=== PATIENT | female | born 2000 | race Caucasian/White ===

== ENCOUNTER 2022-10-31 13:49 | Emergency (ER) | payer BC, SELFPAY ==
[2022-10-31 14:05] VITALS: BP 103/64; PULSE 96; RESP 17; TEMP 36.8; O2SAT 100
--- NOTE | 2022-10-31 14:20 | ED.URI ---
HPI - URI/Sore Throat General Chief Complaint: Upper Respiratory Infection Stated Complaint: Sore Throat Time Seen by Provider: 10/31/22 14:24 Source: patient and RN notes reviewed Mode of arrival: ambulatory Limitations: no limitations History of Present Illness HPI Narrative: 21-year-old female presents with concern for sore throat that started on Sunday. She reports she feels like her throat is swollen, she also reports some nasal congestion. She denies fever, aches, chills, sweats, cough. She reports she feels like she has been having trouble breathing, she denies cough. She reports she was seen in the emergency room last night and was told her symptoms will resolve on their own MD elicited complaint: sore throat Related Data Home Medications Medication Instructions Recorded Confirmed cholecalciferol (vitamin D3) 25 25 mcg PO DAILY 10/31/22 10/31/22 mcg (1,000 unit) tablet (Vitamin D3) fluoxetine 10 mg capsule (Prozac) 10 mg PO DAILY 10/31/22 10/31/22 fluoxetine 40 mg capsule (Prozac) 40 mg PO DAILY 10/31/22 10/31/22 methylphenidate HCl 36 mg 36 mg PO QAM 10/31/22 10/31/22 tablet,extended release 24 hr montelukast 10 mg tablet 10 mg PO DAILY 10/31/22 10/31/22 (Singulair) trazodone 50 mg tablet 50 mg PO HS 10/31/22 10/31/22 Allergies Allergy/AdvReac Type Severity Reaction Status Date / Time No Known Allergies Allergy Verified 10/31/22 14:03 Review of Systems Review of Systems: CONSTITUTIONAL: Denies malaise, chills, sweats, or fever. EYES: Denies visual changes, redness, or discharge. ENT: Denies rhinorrhea, congestion, sinus pain, otalgia. Reports nasal congestion and sore throat. CARDIOVASCULAR: Denies chest pain, palpitations, or edema. RESPIRATORY: Reports cough. Denies dyspnea. GASTROINTESTINAL: Denies abdominal pain, nausea, vomiting, diarrhea SKIN: Denies rash or itching. MUSCULOSKELETAL: Denies myalgia. NEUROLOGIC: Denies headache. All systems reviewed & are unremarkable except as noted in HPI and below PMFSH Comments At time of signature, agree with nursing past medical, surgical, social and family history. There is no relevant family history pertinent to the presenting complaint Exam Narrative: GENERAL: Well-appearing, well-nourished, and in no acute distress. HEAD: Normocephalic EYES: PERRLA, conjunctivae clear ENT: Nares clear, turbinates edematous and erythematous, clear discharge. Mucous membranes moist. TM pearly franklin with dull light reflex bilaterally; no tragal tenderness. Oropharynx not erythematous without lesions. Tonsils not enlarged and without exudate, no drooling, no hoarseness, no trismus, uvula midline. NECK: Supple. No lymphadenopathy CHEST: Clear to auscultation, breath sounds equal. No wheezing, rhonchi, rales, or stridor. No respiratory distress, speaks in full sentences. HEART: Regular rate and rhythm. No murmur heard. SKIN: Warm, dry, no rash. NEURO: Alert and oriented x3. PSYCH: Normal mood and affect Course Course Emergency Course: Patient is very upset that her strep test is negative (she also had a negative strep test in the emergency room) She is concerned that she is going to stop breathing in the middle of the night. Patient's exam is completely normal, there is no erythema, edema noted, there is no stridor, her lung sounds are clear, her vital signs are normal. Patient was reassured, she was instructed if she feels any worsening of symptoms she should go to the emergency room. Patient is aware of diagnosis, understands and agrees to treatment plan. Anticipatory guidance given. Patient agrees to follow-up as directed and is aware of reasons to seek care at the emergency department. Portions of this record may have been created with voice recognition software Level of Care: Express Care Visit Vital Signs Vital signs: Vital Signs Temperature 98.2 F 10/31/22 14:05 Pulse Rate 96 10/31/22 14:05 Respiratory Rate 17 10/31/22 14:05 Blood
== END 2022-10-31 14:40 | disposition home or self-care (01) ==
PROVIDERS: Emergency Provider Nurse Practitioner
DX: J02.9 Acute pharyngitis, unspecified (principal)
CPT/HCPCS: 87081; 87880; 99213; G0463

== ENCOUNTER 2023-01-27 10:58 | Emergency (ER) | payer BC, SELFPAY ==
[2023-01-27 11:13] VITALS: BP 111/75; PULSE 86; RESP 16; TEMP 37.4; O2SAT 100
[2023-01-27 11:17] VITALS: BP 111/75; PULSE 86; RESP 16; TEMP 37.4; O2SAT 100
--- NOTE | 2023-01-27 11:20 | ED.HA ---
HPI - Headache General Chief Complaint: Headache Stated Complaint: Headache Source: patient and RN notes reviewed History of Present Illness HPI Narrative: 22 yo F presents to urgent care with complaints of an ongoing HERNÁNDEZ x 1 month. Pt reports intermittent blurry vision, last time being around 2 am this morning. Pt reports intermittent nausea but denies any vomiting. Pt states the HERNÁNDEZ does radiate sometimes behind her left eye. Denies any head trauma, falls, congestion, fevers, chills, neck pain, numbness, or tingling. Pt does admit to be anxious. Pt staets she had a migraine 1x in the past that lasted 15 days. Pt has tried taking ibuprofen, Excedrin, drinking lots of water, and sleeping all the time without relief. Pt denies any chance of , stating, I've never had sex. Last dose of ibuprofen was yesterday. Related Data Home Medications Medication Instructions Recorded Confirmed methylphenidate HCl 36 mg 36 mg PO QAM 10/31/22 01/27/23 tablet,extended release 24 hr trazodone 50 mg tablet 50 mg PO HS 10/31/22 01/27/23 Vitamin D3 50,000 units PO DAILY 01/27/23 01/27/23 lamotrigine 25 mg tablet 25 mg PO DIRECTED 01/27/23 01/27/23 montelukast 10 mg PO DAILY 01/27/23 01/27/23 Allergies Allergy/AdvReac Type Severity Reaction Status Date / Time No Known Allergies Allergy Verified 01/27/23 11:08 Review of Systems Review of Systems: CONSTITUTIONAL: Denies fever, chills, or sweats. EYES: Denies visual changes, redness, or discharge. ENT: Denies otalgia and sore throat CARDIOVASCULAR: Denies chest pain, palpitations, or edema. RESPIRATORY: Denies cough or dyspnea. GASTROINTESTINAL: Denies abdominal pain, nausea, vomiting, or diarrhea. GENITOURINARY: Denies dysuria or hematuria. SKIN: Denies rash or itching. MUSCULOSKELETAL: Denies back pain, joint pain, or myalgia. NEUROLOGIC: Headache Pertinent positives per HPI. PMFSH Comments At the time of my signature, I reviewed and agree with the nursing past medical, surgical, social, and family history. There is no relevant family history pertinent to the patient complaint. Exam Narrative: GENERAL: This is a well-nourished, well-developed patient, in no apparent distress. HEAD: normocephalic, atraumatic. EYES: Sclera clear/white. Vision is grossly intact. EARS: External ears normal, auditory canals clear and without drainage, TMs normal without perforation. Hearing grossly intact. NOSE: External nose normal with no obvious nasal discharge, nares without redness, no rhinorrhea. THROAT: Mucous membranes moist, posterior pharynx clear. NECK: Neck supple, non-tender without lymphadenopathy, masses or thyromegaly. CARDIOVASCULAR: Regular rate and rhythm without murmurs, gallops, or rubs. RESPIRATORY: Clear to auscultation. Breath sounds equal bilaterally. No wheezes, rales, or rhonchi. GASTROINTESTINAL: Abdomen soft, non-tender, nondistended. Bowel sounds are active. No hepato-splenomegaly, or palpable masses. No guarding. SKIN: warm, intact with no suspicious lesions or rash, good texture and turgor. NEURO: awake, alert, and oriented to person, place and time. There were no obvious focal neurologic abnormalities. EXTREMITIES: No clubbing, cyanosis, or edema. No joint tenderness, effusion, or edema noted. BACK: Nontender without deformity or crepitus. No flank tenderness. Course Course Level of Care: Express Care Visit Vital Signs Vital signs: Vital Signs Temperature 99.4 F 01/27/23 11:13 Pulse Rate 86 01/27/23 11:13 Respiratory Rate 01/27/23 11:13 Blood Pressure 111/75 01/27/23 11:13 Pulse Oximetry 100 01/27/23 11:13 Oxygen Delivery Room Air 01/27/23 11:13 Temperature 99.4 F 01/27/23 11:17 Pulse Rate 86 01/27/23 11:17 Respiratory Rate 16 01/27/23 11:17 Blood Pressure 111/75 01/27/23 11:17 Pulse Oximetry 100 01/27/23 11:17 Oxygen Delivery Room Air 01/27/23 11:17 reviewed MDM - Headache MDM N
== END 2023-01-27 11:35 | disposition short-term general hospital (02) ==
PROVIDERS: Emergency Provider Nurse Practitioner Family
DX: G43.901 Migraine, unspecified, not intractable, with status migrainosus (principal); J45.909 Unspecified asthma, uncomplicated; F90.9 Attention-deficit hyperactivity disorder, unspecified type; F32.A Depression, unspecified
CPT/HCPCS: 99212; G0463

== ENCOUNTER 2023-05-27 18:06 | Emergency (ER) | payer BC, SELFPAY ==
[2023-05-27 18:17] VITALS: BP 121/102; PULSE 92; RESP 16; TEMP 36.7; O2SAT 99
[2023-05-27 18:20] VITALS: BP 121/102; PULSE 92; RESP 16; TEMP 36.7; O2SAT 99
--- NOTE | 2023-05-27 18:34 | ED.FEMALEGU ---
HPI - Female Genitourinary General Chief complaint: Urogenital-Female Stated complaint: vaginal issue Time Seen by Provider: 05/27/23 18:28 Source: patient and RN notes reviewed Mode of arrival: ambulatory Limitations: no limitations History of Present Illness HPI Narrative: 22 y/o female presented for c/o recurrent yeast infection. Endorses burning and irritation to vaginal opening, and white discharge. States she had a uti along with a yeast infection in April, and states the abx for the uti worsened the yeast infection. States she has had a history of yeast infections, and often requires a 7 day treatment with fluconazole. Also states she has spent over $100 on otc yeast creams without improvement. Denies sexual activity. LMP 05/18. Denies itching, lesions, hematuria, nausea, vomiting, abdominal pain, flank pain, constipation, diarrhea, fevers or chills. Related Data Home Medications Medication Instructions Recorded Confirmed trazodone 50 mg tablet 50 mg PO HS 10/31/22 05/27/23 lamotrigine 25 mg tablet 25 mg PO DIRECTED 01/27/23 05/27/23 fluoxetine 20 mg capsule 20 mg PO DAILY 05/27/23 05/27/23 ibuprofen 600 mg tablet See Rx Instructions .Route .COMPLEX 05/27/23 05/27/23 loratadine 10 mg tablet 10 mg PO DAILY 05/27/23 05/27/23 methylphenidate HCl 36 mg 36 mg PO DAILY 05/27/23 05/27/23 tablet,extended release 24 hr (Concerta) montelukast 10 mg tablet 10 mg PO DAILY 05/27/23 05/27/23 propranolol 60 mg tablet 60 mg PO DAILY 05/27/23 05/27/23 Allergies Allergy/AdvReac Type Severity Reaction Status Date / Time No Known Allergies Allergy Verified 05/27/23 18:11 Review of Systems Review of Systems: CONSTITUTIONAL: Denies body aches, fever, chills, or sweats. CARDIOVASCULAR: Denies chest pain, palpitations, or edema. RESPIRATORY: Denies cough or dyspnea. GASTROINTESTINAL: Denies abdominal pain, nausea, vomiting, or diarrhea. GENITOURINARY: reports vaginal discharge and irritation. denies dysuria, frequency, urgency, hematuria, flank pain SKIN: Denies rash, itching, or wounds. MUSCULOSKELETAL: Denies back pain or myalgia. [facility] Past Medical History Medical History (Updated 05/27/23 @ 19:18 by Isi Reynolds APRN) ADHD Self-harming behaviour Comments At time of signature, I have reviewed and agree with nursing past medical, surgical, social and family history unless otherwise noted. Please see nursing chart for further information. There is no relevant family history pertinent to the presenting complaint Exam Narrative: GENERAL: Well-appearing and in no acute distress. ENT: Mucous membranes pink and moist. NECK: Normal AROM. Supple. CHEST: No respiratory distress. Clear to auscultation. HEART: Regular rate and rhythm. ABDOMEN: Soft, nontender, nondistended, normal active bowel sounds. No CVA tenderness : Speculum Exam deferred based on trauma history. external skin pink with white discharge. No bleeding, foreign body, laceration or lesions. No swelling. Nontender. Chaperoned by Kaela BELLO SKIN: Warm, dry, extensive linear scarring to bilateral upper and lower extremities various stages of healing c/w self harm. NEURO: No focal deficits. Alert and oriented x3. Gait steady. PSYCH: Anxious. Cooperative. Course Course Emergency Course: Patient is aware of diagnosis, understands and agrees to treatment plan. Anticipatory guidance given. Patient agrees to follow-up as directed and is aware of reasons to seek care at the emergency department. Portions of this record may have been created with voice recognition software Level of Care: Express Care Visit Vital Signs Vital signs: Vital Signs Temperature 98.0 F 05/27/23 18:17 Pulse Rate 92 05/27/23 18:17 Respiratory Rate 16 05/27/23 18:17 Blood Pressure 121/102 H 05/27/23 18:17 Pulse Oximetry 99 05/27/23 18:17 Oxygen Delivery Room Air 05/27/23 18:17 Temperature 98.0 F 05/27/23 18:20 Pulse Rate 92 01
[2023-05-30 08:21] LABS: Bacterial Vaginosis Negative (Negative)
== END 2023-05-27 19:28 | disposition home or self-care (01) ==
PROVIDERS: Emergency Provider Nurse Practitioner Family; PCP Nurse Practitioner Family
DX: N76.0 Acute vaginitis (principal); F90.9 Attention-deficit hyperactivity disorder, unspecified type
CPT/HCPCS: 81003; 81513; 87070; 99213; G0463

== ENCOUNTER 2023-07-04 10:03 | Emergency (ER) | payer BC, SELFPAY ==
[2023-07-04 10:16] VITALS: BP 109/65; PULSE 76; RESP 16; TEMP 36.7; O2SAT 98
--- NOTE | 2023-07-04 10:28 | ED.GENADULT ---
HPI - General Adult General Chief complaint: Urogenital-Female Stated complaint: UTI Source: patient, RN notes reviewed and old records reviewed Mode of arrival: ambulatory Limitations: no limitations History of Present Illness HPI narrative: 22-year-old female presents to [facility] with complaints of burning with urination. Patient was seen approximately 1 week ago in the ER and diagnosed with a UTI given cephalexin. Patient states symptoms have worsened and is now having constant urethral pain. Patient states taking azo with no relief. Patient unsure if ER sent urine culture but states has not received any calls. Related Data Home Medications Medication Instructions Recorded Confirmed trazodone 50 mg tablet 50 mg PO HS 10/31/22 05/27/23 lamotrigine 25 mg tablet 25 mg PO DIRECTED 01/27/23 05/27/23 fluoxetine 20 mg capsule 20 mg PO DAILY 05/27/23 05/27/23 loratadine 10 mg tablet 10 mg PO DAILY 05/27/23 05/27/23 methylphenidate HCl 36 mg 36 mg PO DAILY 05/27/23 05/27/23 tablet,extended release 24 hr (Concerta) montelukast 10 mg tablet 10 mg PO DAILY 05/27/23 05/27/23 propranolol 60 mg tablet 60 mg PO DAILY 05/27/23 05/27/23 cephalexin 500 mg capsule mg 07/04/23 phenazopyridine 200 mg tablet mg 07/04/23 Allergies Allergy/AdvReac Type Severity Reaction Status Date / Time No Known Allergies Allergy Verified 07/04/23 10:17 Review of Systems Constitutional: Constitutional: Reports no additional constitutional complaints, Denies body ache(s), Denies chills, Denies fatigue, Denies fever(s) and Denies headache(s) Eyes: Eyes: Reports no additional eye complaints and Denies blurry vision ENT: Reports system reviewed and no additional complaints, except as documented, Denies vertigo, Denies dizziness, Denies ear discharge, Denies otalgia, Denies facial pain, Denies headache(s), Denies nasal congestion, Denies nasal discharge, Denies sinus pain, Denies sinus pressure and Denies sore throat Cardiovascular: Cardiovascular: Reports no additional cardiovascular complaints, Denies chest pain, Denies chest pain at rest, Denies rapid heart rate and Denies dyspnea Respiratory: Respiratory: Reports no additional respiratory complaints, Denies chest congestion, Denies cough, Denies pain on inspiration, Denies pain with cough and Denies dyspnea Gastrointestinal: Gastrointestinal: Denies abdominal pain, Denies diarrhea, Denies nausea and Denies vomiting Genitourinary: Genitourinary: Reports as per HPI and Reports dysuria Integumentary/Breasts: Skin/Breast: Denies rash Neurologic: Reports system reviewed and no additional complaints, except as documented, Denies vertigo, Denies dizziness and Denies headache(s) Endocrine: Endocrine: Denies fatigue PMFSH Past Medical History Medical History ADHD Self-harming behaviour Comments At the time of my signature, I reviewed and agree with the nursing past medical, surgical, social, and family history. There is no relevant family history pertinent to the patient complaint. Exam Const: General: cooperative, healthy appearing, no acute distress and well nourished Nutritional Appearance: well nourished Orientation/consciousness: patient oriented x3 Limitations: no limitations HENMT: Head: normal to inspection and normocephalic Ears: external ears normal Face/Nose/Sinus: normal facial exam Face and sinus: normal facial exam Mouth: Yes moist mucous membranes Throat: uvular edema Eyes: General: appearance normal, both eyes and all related structures Sclera: sclerae normal Pupils: Equal, round and reactive pupils present Resp: Effort & Inspection: normal respiratory effort, able to speak in complete sentences, no audible wheezes, no cough, no respiratory distress and no retractions GI: GI Palp: No abdominal tenderness, Yes Soft to palpation, No Firmness to palpation present (GI), No Tenderness to palpation present (GI), No G
== END 2023-07-04 11:02 | disposition home or self-care (01) ==
PROVIDERS: Emergency Provider Registered Nurse; PCP Nurse Practitioner Family
DX: N30.90 Cystitis, unspecified without hematuria (principal); F90.9 Attention-deficit hyperactivity disorder, unspecified type
CPT/HCPCS: 81003; 87086; 99213; G0463

== ENCOUNTER 2025-04-29 11:32 | Emergency (ER) | payer BC, SELFPAY ==
--- NOTE | 2025-04-29 12:11 | ED.URI ---
HPI - URI/Sore Throat General Stated Complaint: flu symptoms Time Seen by Provider: 04/29/25 11:35 Source: patient Mode of arrival: ambulatory Limitations: no limitations Related Data Home Medications ?Medication ?Instructions ?Recorded ?Confirmed ?Last Taken ?Type trazodone 50 mg tablet 50 mg PO HS 10/31/22 05/27/23 Unknown History lamotrigine 25 mg tablet 25 mg PO DIRECTED 01/27/23 05/27/23 Unknown History fluoxetine 20 mg capsule 20 mg PO DAILY 05/27/23 05/27/23 Unknown History loratadine 10 mg tablet 10 mg PO DAILY 05/27/23 05/27/23 Unknown History methylphenidate HCl 36 mg 36 mg PO DAILY 05/27/23 05/27/23 Unknown History tablet,extended release 24 hr (Concerta) montelukast 10 mg tablet 10 mg PO DAILY 05/27/23 05/27/23 Unknown History propranolol 60 mg tablet 60 mg PO DAILY 05/27/23 05/27/23 Unknown History cephalexin 500 mg capsule mg 07/04/23 Unknown History phenazopyridine 200 mg tablet mg 07/04/23 Unknown History Allergies Allergy/AdvReac Type Severity Reaction Status Date / Time No Known Allergies Allergy Verified 07/04/23 10:17 Review of Systems Review of Systems: All systems reviewed & are unremarkable except as noted in HPI and below Constitutional: Constitutional: Denies chills, Denies fatigue, Denies fever(s), Denies headache(s), Denies malaise and Denies weakness Eyes: Eyes: Denies blurry vision, Denies itchy eyes and Denies loss of vision ENT: Denies otalgia, Denies headache(s), Reports nasal congestion, Denies sinus pain and Denies sore throat Cardiovascular: Cardiovascular: Denies chest pain, Denies irregular heart rhythm and Denies dyspnea Respiratory: Respiratory: Reports cough and Denies dyspnea Gastrointestinal: Gastrointestinal: Denies abdominal pain, Denies diarrhea, Denies nausea and Denies vomiting Musculoskeletal: Musculoskeletal: Denies back pain, Denies myalgias and Denies arthralgias Integumentary/Breasts: Skin/Breast: Denies pruritus and Denies rash Neurologic: Denies headache(s), Denies loss of vision and Denies weakness Psychiatric: Psychiatric: Reports no additional psychiatric complaints Endocrine: Endocrine: Denies fatigue Allergic/Immunologic: Allergic/Immunologic: Denies itchy eyes PMFSH Past Medical History Medical History ADHD Self-harming behaviour Comments At time of signature, agree with nursing past medical, surgical, social and family history. There is no relevant family history pertinent to the presenting complaint. Exam Const: General: cooperative, healthy appearing, comfortable, no acute distress and well nourished Nutritional Appearance: well nourished Orientation/consciousness: patient oriented x3 Limitations: no limitations HENMT: Head: normal to inspection, normocephalic and atraumatic Ears: hearing grossly normal bilaterally, external ears normal, TM's normal bilaterally, EAC's normal and no periauricular adenopathy Face/Nose/Sinus: Normal external nose present, Abnormal mucous membranes and turbinates present erythematous bilateral and diffuse, normal facial exam, sinuses nontender and face symmetric Face and sinus: normal facial exam, sinuses nontender and face symmetric Mouth: Yes Normal oral and palatal mucosa present, Yes lip normal, Yes tongue normal, Yes Normal salivary glands and ducts present, Yes oropharynx normal and Yes moist mucous membranes Teeth and gingiva: dentition normal Throat: posterior oropharynx normal, tonsils normal and uvula midline Eyes: General: appearance normal, both eyes and all related structures Alignment and Position: alignment normal and position normal Periorbital: periorbital findings normal Eyelids: eyelids normal Pupils: Equal, round and reactive pupils present Neck: Neck: normal visual inspection, full ROM, no lymphadenopathy and supple Chest: Chest palpation & inspection: normal inspection of the chest and normal palpation of entire chest wall Resp: Effort & Inspection: normal respiratory effort and able to speak in complete sentences Auscultation: clear to auscultation bilaterally, no crackles, no rales, no rhonchi and no wheezes Cardio: Rate: regular rate Rhythm: regular rhythm Heart sounds: S1 normal heart sound present and S2 normal heart sound present GI: Inspection: normal to inspection Skin: General skin exam: normal color and no rashes or lesions noted Neuro: General: patient oriented x3 and moves all extremities Cranial nerves: Yes Equal, round and reactive pupils present Speech: normal speech Gait exam (Neuro): Normal gait present Extrem: General: normal to inspection, full ROM and no edema Psych: Appearance: grossly normal and well kempt Mental Status: mental status grossly normal Speech and movement: Normal speech and movement present Affect: normal affect Attitude: cooperative Thought process: Normal thought process present Course Course Emergency Course: Patient is aware of diagnosis, understands and agrees to treatment plan. Anticipatory guidance given. Patient agrees to follow-up as directed and is aware of reasons to seek care at the emergency department. Portions of this record may have been created with voice recognition software Level of Care: Express Care Visit MDM MDM Narrative Medical decision making narrative: Rapid COVID, flu, strep were negative. A throat culture is pending. Symptoms likely viral in etiology. Pt well hydrated appearing, in no respiratory distress, hemodynamically stable. Recommend supportive care. The patient is stable at time of discharge the clinical impression was discussed and the patient was given the opportunity to ask questions, which were addressed as completely as possible given the information available at present. Anticipatory guidance and return to care precautions were discussed and the importance of primary care follow-up was stressed and encouraged. The patient voiced understanding of the plan, indications to return, and the need for follow-up. Exam findings show no acute concerns or changes Patient is appropriate for outpatient treatment and follow-up. Differential Diagnosis Differential Diagnosis: Differential diagnosis considered: [place] virus, strep pharyngitis, allergic rhinitis, upper respiratory tract infection, sinusitis, rhinosinusitis, nasopharyngitis. viral pharyngitis, otitis media, otitis externa, otitis effusion, foreign body, cerumen impaction, viral syndrome, and influenza. Medical Records I have reviewed the following patient records and this information was taken into consideration when formulating the assessment and plan.: previous clinic visits Discharge Plan Discharge Patient Language: Urdu Prescriptions: No Action propranolol 60 mg tablet 60 mg PO DAILY montelukast 10 mg tablet 10 mg PO DAILY fluoxetine 20 mg capsule 20 mg PO DAILY loratadine 10 mg tablet 10 mg PO DAILY methylphenidate HCl [Concerta] 36 mg tablet extended release 24hr 36 mg PO DAILY phenazopyridine 200 mg tablet cephalexin 500 mg capsule amoxicillin-pot clavulanate 875-125 mg tablet 1 tablet PO Q12H Qty: 10 0RF phenazopyridine [Pyridium] 200 mg tablet 200 mg PO TID PRN (Reason: pain) Qty: 6 0RF trazodone 50 mg Tablet 50 mg PO HS lamotrigine 25 mg tablet 25 mg PO DIRECTED Follow-up/Referrals: PHYSICIAN,BOATING SAFETY OFFICER [Primary Care Provider, Internal Medicine]
[2025-04-29 12:25] VITALS: BP 98/57; PULSE 77; RESP 14; TEMP 36.8; O2SAT 99
--- NOTE | 2025-04-29 12:35 | ED_ITS ---
HPI - URI/Sore Throat General Chief Complaint: Upper Respiratory Infection Stated Complaint: flu symptoms Time Seen by Provider: 04/29/25 11:35 Source: patient Mode of arrival: ambulatory Limitations: no limitations History of Present Illness HPI Narrative: patient is a 24-year-old female that presents with 3 weeks of sinus pressure, congestion, headache. Patient states she has these symptoms for several weeks at a time then they go away and then return. This has been happening since December. Patient does not have a PCP at this time. Patient has tried multiple [id number] medications with no relief. Patient also having constipation concerns but is unable to buy [id number] stool softeners Related Data Home Medications ?Medication ?Instructions ?Recorded ?Confirmed ?Last Taken ?Type trazodone 50 mg tablet 50 mg PO HS 10/31/22 4 Unknown History lamotrigine 25 mg tablet 25 mg PO DIRECTED 3 05/27/23 Unknown History fluoxetine 20 mg capsule 20 mg PO DAILY 05/27/2305/14 Unknown History loratadine 10 mg tablet 10 mg PO DAILY 05/27/2305/14 Unknown History methylphenidate HCl 36 mg 36 mg PO DAILY 05/27/2305/14 Unknown History tablet,extended release 24 hr (Concerta) montelukast 10 mg tablet 10 mg PO DAILY 05/27/2305/14 Unknown History propranolol 60 mg tablet 60 mg PO DAILY 05/27/2305/14 Unknown History Allergies Allergy/AdvReac Type Severity Reaction Status Date / Time ondansetron (From Zofran) Allergy Unknown Unknown Verified 04/29/25 12:37 Review of Systems Review of Systems: All systems reviewed & are unremarkable except as noted in HPI and below Constitutional: Constitutional: Denies chills, Denies fatigue, Denies fever(s), Reports headache(s), Denies malaise and Denies weakness Eyes: Eyes: Denies blurry vision, Denies itchy eyes and Denies loss of vision ENT: Denies otalgia, Reports headache(s), Reports nasal congestion, Reports sinus pain, Reports sinus pressure and Denies sore throat Cardiovascular: Cardiovascular: Denies chest pain, Denies irregular heart rhythm and Denies dyspnea Respiratory: Respiratory: Denies cough and Denies dyspnea Gastrointestinal: Gastrointestinal: Denies abdominal pain, Denies diarrhea, Denies nausea and Denies vomiting Musculoskeletal: Musculoskeletal: Denies back pain, Denies myalgias and Denies arthralgias Integumentary/Breasts: Skin/Breast: Denies pruritus and Denies rash Neurologic: Reports headache(s), Denies loss of vision and Denies weakness Psychiatric: Psychiatric: Reports no additional psychiatric complaints Endocrine: Endocrine: Denies fatigue Allergic/Immunologic: Allergic/Immunologic: Denies itchy eyes PMFSH Past Medical History Medical History ADHD Self-harming behaviour Comments At time of signature, agree with nursing past medical, surgical, social and family history. There is no relevant family history pertinent to the presenting complaint. Exam Const: General: cooperative, healthy appearing, comfortable, no acute distress and well nourished Nutritional Appearance: well nourished Orientation/consciousness: patient oriented x3 Limitations: no limitations HENMT: Head: normal to inspection, normocephalic and atraumatic Ears: hearing grossly normal bilaterally, external ears normal, TM's normal bilaterally, EAC's normal and no periauricular adenopathy Face/Nose/Sinus: Normal external nose present, Abnormal mucous membranes and turbinates present erythematous bilateral and diffuse, normal facial exam, face symmetric and Facial tenderness on exam of face and sinuses Face and sinus: normal facial exam and face symmetric Mouth: Yes Normal oral and palatal mucosa present, Yes lip normal, Yes tongue normal, Yes Normal salivary glands and ducts present, Yes oropharynx normal and Yes moist mucous membranes Teeth and gingiva: dentition normal Throat: posterior oropharynx normal, tonsils normal and uvula midline Eyes: General: appearance normal, both eyes and all related structures Alignment and Position: alignment normal and position normal Periorbital: periorbital findings normal Eyelids: eyelids normal Pupils: Equal, round and reactive pupils present Neck: Neck: normal visual inspection, full ROM, no lymphadenopathy and supple Chest: Chest palpation & inspection: normal inspection of the chest and normal palpation of entire chest wall Resp: Effort & Inspection: normal respiratory effort and able to speak in complete sentences Auscultation: clear to auscultation bilaterally, no crackles, no rales, no rhonchi and no wheezes Cardio: Rate: regular rate Rhythm: regular rhythm Heart sounds: S1 no rmal heart sound present and S2 normal heart sound present GI: Inspection: normal to inspection Skin: General skin exam: normal color and no rashes or lesions noted Neuro: General: patient oriented x3 and moves all extremities Cranial nerves: Yes Equal, round and reactive pupils present Speech: normal speech Gait exam (Neuro): Normal gait present Extrem: General: normal to inspection, full ROM and no edema Psych: Appearance: grossly normal and well kempt Mental Status: mental status grossly normal Speech and movement: Normal speech and movement present Affect: normal affect Attitude: cooperative Thought process: Normal thought process present Course Course Emergency Course: Patient is aware of diagnosis, understands and agrees to treatment plan. Anticipatory guidance given. Patient agrees to follow-up as directed and is aware of reasons to seek care at the emergency department. Portions of this record may have been created with voice recognition software Level of Care: Express Care Visit Vital Signs Vital signs: Vital Signs Temperature 36.8 C 04/29/25 12:25 Pulse Rate 77 04/29/25 12:25 Respiratory Rate 14 04/29/25 12:25 Blood Pressure 98/57 L 04/29/25 12:25 Pulse Oximetry 99 04/29/25 12:25 Temperature 36.8 C 04/29/25 12:25 Pulse Rate 77 04/29/25 12:25 Respiratory Rate 14 04/29/25 12:25 Blood Pressure 98/57 L 04/29/25 12:25 Pulse Oximetry 99 04/29/25 12:25 [facility] Narrative Medical decision making narrative: exam and symptoms consistent with sinusitis. Will treat with antibiotics. Will send in stool softeners for constipation Pt well hydrated appearing, in no respiratory distress, hemodynamically stable. Recommend supportive care. The patient is stable at time of discharge the clinical impression was discussed and the patient was given the opportunity to ask questions, which were addressed as completely as possible given the information available at present. Anticipatory guidance and return to care precautions were discussed and the importance of primary care follow-up was stressed and encouraged. The patient voiced understanding of the plan, indications to return, and the need for follow-up. Exam findings show no acute concerns or changes Patient is appropriate for outpatient treatment and follow-up. Differential Diagnosis Differential Diagnosis: Differential diagnosis considered: [place] virus, strep pharyngitis, allergic rhinitis, upper respiratory tract infection, sinusitis, rhinosinusitis, nasopharyngitis. viral pharyngitis, otitis media, otitis externa, otitis effusion, foreign body, cerumen impaction, viral syndrome, and influenza. Medical Records I have reviewed the following patient records and this information was taken into consideration when formulating the assessment and plan.: previous clinic visits Discharge Plan Discharge Clinical Impression: Sinusitis Qualifiers: Sinusitis location: frontal Chronicity: acute Recurrence: non-recurrent Qualified Code(s): J01.10 - Acute frontal sinusitis, unspecified Constipation Qualifiers: Constipation type: other constipation type Qualified Code(s): K59.09 - Other constipation Patient Disposition: Home Condition: Stable Instructions: Sinusitis (ED) Additional Instructions: Symptomatic treatment of a sinus infection aims to relieve symptoms. These treatments do not shorten the duration of illness. Nonprescription pain medications, such as acetaminophen (eg, Tylenol) or ibuprofen (eg, Motrin, Advil), are recommended for pain. Flushing the nose and sinuses with a saline solution several times per day has been proven to decrease pain associated with congestion and shorten the duration of symptoms. Nasal steroids (such as Flonase, 2 sprays in each nostril daily) can help to reduce swelling inside the nose, usually within two to three days. These drugs have few side effects and relieve symptoms in most people. Oral decongestants (pseudoephedrine and phenylephrine) may be helpful if you have associated symptoms of ear pain or fullness. Nasal decongestant sprays, including oxymetazoline (Afrin) and phenylephrine (Mo-Synephrine), can be used to temporarily treat congestion. However, these sprays should not be used for more than two to three days due to the risk of rebound congestion (when the nose becomes congested constantly unless the medication is used repeatedly), possible addiction, and long-term consequences of frequent use, including persistent nasal dryness and crusting, which is very difficult to treat once it has developed. Medications to thin secretions (such as guaifenesin) may help to clear mucus. Please follow-up with your primary care doctor in the next 1-2 days. If you cannot follow-up with your primary care doctor please go to the ED for any urgent issues. If you have any worsening of symptoms or any other concerns please go to the ED immediately. Take Senokot 1-3 tabs, ingest with full glass of water. Also take Miralax 1 capful twice daily until bowel movements are regular. To maintain soft stools after constipation is releived, you may take Colace 100- 200 mg up to three times per day. Maintain fluid intake 6-8 glasses per day. Please increase fibers (fruits and vegetables) in your diet, or use bulk fiber supplements. Decrease or eliminate intake of fast food and junk foods. Patient Language: Norwegian Prescriptions: New sennosides [senna] 8.6 mg tablet 8.6 mg PO DAILY Qty: 30 0RF docusate sodium [Stool Softener] 100 mg capsule 100 mg PO DAILY Qty: 30 0RF amoxicillin-pot clavulanate 875-125 mg tablet 1 tablet PO Q12H 10 Days Qty: 20 0RF No Action propranolol 60 mg tablet 60 mg PO DAILY montelukast 10 mg tablet 10 mg PO DAILY fluoxetine 20 mg capsule 20 mg PO DAILY loratadine 10 mg tablet 10 mg PO DAILY methylphenidate HCl [Concerta] 36 mg tablet extended release 24hr 36 mg PO DAILY amoxicillin-pot clavulanate 875-125 mg tablet 1 tablet PO Q12H Qty: 10 0RF trazodone 50 mg Tablet 50 mg PO HS lamotrigine 25 mg tablet 25 mg PO DIRECTED Follow-up/Referrals: Cliff Franco MD [Physician, Family Practice] - 3 Days Referral Note: Establish care Time of Disposition: 12:39
== END 2025-04-29 12:46 | disposition home or self-care (01) ==
PROVIDERS: Emergency Provider Nurse Practitioner Family
DX: J01.10 Acute frontal sinusitis, unspecified (principal); K59.09 Other constipation; F90.9 Attention-deficit hyperactivity disorder, unspecified type
CPT/HCPCS: 99213; G0463